=== PATIENT | female | born 1985 | race Caucasian/White ===

== ENCOUNTER 2018-07-20 16:46 | Emergency (ER) | payer MEDICAID ==
[~2018-07-20] VITALS: Ht 170.2 cm; Wt 119.0 kg
--- NOTE | 2018-07-20 18:27 | NUR ---
TO 32 WITH FAMILY
[2018-07-20 18:57] VITALS: BP 108/68
[2018-07-20] MEDS ORDERED: TOPI50TA8 PO (19:00)
[2018-07-20] MEDS ORDERED: SUMA50TA3 PO (19:00)
[2018-07-20] MEDS ORDERED: FERR324T9 PO (19:00)
[2018-07-20] MEDS ORDERED: KETOROLAC 30 MG/1 ML ONE (19:48)
[2018-07-20] MEDS ORDERED: METOCLOPRAMIDE 5 MG/ML, 2ML ONE (19:48)
[2018-07-20] MEDS ORDERED: DIPHENHYDRAMINE 50 MG/ML, 1ML ONE (19:48)
[2018-07-20] MEDS ORDERED: DIPHENHYDRAMINE 50 MG/ML, 1ML IM ONE (20:00)
[2018-07-20] MEDS ORDERED: KETOROLAC 60 MG/2 ML IM ONE (20:00)
[2018-07-20] MEDS ORDERED: METOCLOPRAMIDE 5 MG/ML, 2ML IM ONE (20:00)
== END 2018-07-20 20:10 | disposition home or self-care (01) ==
LOC: ED 20:08
DX: G43.909 Migraine, unspecified, not intractable, without status migrainosus (principal)
CPT/HCPCS: 96372; 99283; J1200; J1885; J2765

== ENCOUNTER 2018-08-15 09:58 | Emergency (ER) | payer MEDICAID ==
[~2018-08-15] VITALS: Ht 167.6 cm; Wt 119.0 kg
[~2018-08-15 09:58] MED LIST: FERR324T9 PO; SUMA50TA3 PO; TOPI50TA8 PO
[2018-08-15] MEDS ORDERED: SERT50TA28 PO (10:18)
[2018-08-15] MEDS ORDERED: PREG100C PO (10:18)
[2018-08-15] MEDS ORDERED: OMEP-110 PO (10:18)
[2018-08-15] MEDS ORDERED: FIORICET PO (10:18)
--- NOTE | 2018-08-15 10:29 | NUR ---
PT C/O PERSISTENT PRODUCTIVE COUGH OVER LAST 2 WEKS THAT WAS ACCOMPANIED BY VOMITING AFTER COUGHING SINCE LAST NOC. PT ALSO REPORTS BODY ACHES AND CHILLS. PT SEEN BY RESIDENT . WAITING FOR ORDERS.
[2018-08-15] MEDS ORDERED: ALBUTEROL/IPRATROPIUM 2.5MG/0.5MG, 3 ML NPPB ONE (11:30)
[2018-08-15] MEDS ORDERED: ALBUTEROL/IPRATROPIUM 2.5MG/0.5MG, 3 ML ONE (11:35)
[2018-08-15 11:46] LABS: BASOPHILS # (AUTO) 0.02 x10^3/uL (0-0.1); BASOPHILS % (AUTO) 0 % (0-1); EOSINOPHILS # (AUTO) 0.09 x10^3/uL (0-0.4); EOSINOPHILS % (AUTO) 1 % (1-7); LYMPHOCYTES # (AUTO) 1.37 x10^3/uL (1-3.4); LYMPHOCYTES % (AUTO) 17 % (22-44); MD NO; MEAN CORPUSCULAR HEMOGLOBIN 28.8 pg (27.0-34.8); MEAN CORPUSCULAR HGB CONC 33.3 g/dL (32.4-35.8); MEAN CORPUSCULAR VOLUME 86.8 fL (80-100); MEAN PLATELET VOLUME 7.6 fL (7.4-10.4); MONOCYTES # (AUTO) 0.41 x10^3/uL (0.2-0.8); MONOCYTES % (AUTO) 5 % (2-9); NEUTROPHILS # (AUTO) 6.33 x10^3/uL (1.8-6.8); NEUTROPHILS % (AUTO) 77 % (42-75); PLATELET COUNT 293 x10^3/uL (130-400); RED BLOOD COUNT 4.51 x10^6/uL (3.82-5.3); RED CELL DISTRIBUTION WIDTH 13.8 % (9.6-15.2)
[2018-08-15 11:52] LABS: ALBUMIN 3.6 g/dL (3.4-5.0); ANION GAP 5 mmol/L (5-15); CALCIUM 8.4 mg/dL (8.5-10.1); CHLORIDE 112 mmol/L (98-107); CREATININE 0.87 mg/dL (0.55-1.02)
--- NOTE | 2018-08-15 11:58 | NUR ---
CHART UP FOR MD RECHECK. PT AWARE.
[2018-08-15 12:29] VITALS: BP 120/75
== END 2018-08-15 12:31 | disposition home or self-care (01) ==
LOC: ED 11:21
DX: J98.01 Acute bronchospasm (principal); K21.9 Gastro-esophageal reflux disease without esophagitis
CPT/HCPCS: 36415; 71046; 73610; 80048; 82040; 85025; 93005; 94640; 99284; J7620

== ENCOUNTER 2018-10-20 10:34 | Emergency (ER) | payer MEDICAID ==
[~2018-10-20] VITALS: Ht 170.2 cm; Wt 113.0 kg
[~2018-10-20 10:34] MED LIST changes: +FIORICET PO; +OMEP-110 PO; +PREG100C PO; +SERT50TA28 PO
[2018-10-20 10:54] VITALS: BP 127/85
--- NOTE | 2018-10-20 11:16 | NUR ---
PT IN ROOM WITH FAMILY. PT IN GOWN AND ON NIBP AND O2 MONITORING. PT C/O CHEST CONGESTION, NASAL CONGESTION, AND HEADACHE THAT HAS BEEN UNRELIEVED BY TX AT HOME. RESPS EVEN AND UNLABORED, ROOM LIGHTING DIMMED AT PT REQUEST, CALL LIGHT IN REACH AND PT ENCOURAGED TO PRESS CALL LIGHT FOR ANY NEEDS OR CONCERNS.
== END 2018-10-20 12:06 | disposition home or self-care (01) ==
LOC: ED 11:59
DX: J01.10 Acute frontal sinusitis, unspecified (principal); J01.00 Acute maxillary sinusitis, unspecified; G43.019 Migraine without aura, intractable, without status migrainosus; K21.9 Gastro-esophageal reflux disease without esophagitis
CPT/HCPCS: 99283

== ENCOUNTER 2018-11-02 16:50 | Emergency (ER) | payer MEDICAID ==
[~2018-11-02] VITALS: Ht 167.6 cm; Wt 114.1 kg
[2018-11-02 16:55] VITALS: BP 117/79
--- NOTE | 2018-11-02 18:10 | NUR ---
Patient/Caregiver given discharge instructions and they have confirmed that they understand the instructions. Patient ambulatory with steady gait.
== END 2018-11-02 18:11 | disposition home or self-care (01) ==
LOC: ED 17:18
DX: J20.8 Acute bronchitis due to other specified organisms (principal); G43.909 Migraine, unspecified, not intractable, without status migrainosus; K21.9 Gastro-esophageal reflux disease without esophagitis
CPT/HCPCS: 71046; 99283

== ENCOUNTER 2019-06-12 13:41 | Emergency (ER) | payer MEDICAID ==
[~2019-06-12] VITALS: Ht 170.2 cm; Wt 109.5 kg
[2019-06-12 16:33] VITALS: BP 117/87
--- NOTE | 2019-06-12 21:45 | NUR ---
JOHNX1
--- NOTE | 2019-06-12 21:48 | NUR ---
NO ANSWER WHEN CALLED FOR ROOM
--- NOTE | 2019-06-12 21:56 | NUR ---
NILX3 LWBS
--- NOTE | 2019-06-12 21:56 | NUR ---
LEGAL COUNSEL: NIL X3. PT ASSUMED TO HAVE LEFT.
== END 2019-06-12 21:58 | disposition left against medical advice (07) ==
LOC: ED 21:52
DX: G43.909 Migraine, unspecified, not intractable, without status migrainosus (principal)
CPT/HCPCS: 99281

== ENCOUNTER 2019-07-28 10:57 | Emergency (ER) | payer MEDICAID ==
[~2019-07-28] VITALS: Ht 170.2 cm; Wt 107.3 kg
--- NOTE | 2019-07-28 11:58 | NUR ---
PT AMBULATED STEADILY TO ROOM FROM LOBBY, CHANGED INTO GOWN, RESPONDS APPROP TO STAFF, COMFORT MEASURES PROVIDED, CALL LIGHT WITHIN REACH.
[2019-07-28 12:00] VITALS: BP 132/76
[2019-07-28] MEDS ORDERED: MAALOX/HYOSCYAMINE/LIDOCAINE 45 ML BTL ONE (12:21)
[2019-07-28] MEDS ORDERED: KETOROLAC 60 MG/2 ML ONE (12:21)
[2019-07-28] MEDS ORDERED: ONDANSETRON ODT 4 MG ONE (12:21)
[2019-07-28] MEDS ORDERED: KETOROLAC 30 MG/1 ML IM ONE (12:30)
[2019-07-28] MEDS ORDERED: MAALOX/HYOSCYAMINE/LIDOCAINE 45 ML BTL PO ONE (12:30)
[2019-07-28] MEDS ORDERED: ONDANSETRON ODT 8 MG PO ONE (12:30)
--- NOTE | 2019-07-28 13:19 | NUR ---
Patient/Caregiver given discharge instructions and they have confirmed that they understand the instructions. Patient ambulatory with steady gait.
--- NOTE | 2019-07-28 13:19 | NUR ---
REPORT FROM ARISTIDES
== END 2019-07-28 13:27 | disposition home or self-care (01) ==
LOC: ED 13:16
DX: G44.209 Tension-type headache, unspecified, not intractable (principal); R11.2 Nausea with vomiting, unspecified; R05 Cough; K21.9 Gastro-esophageal reflux disease without esophagitis
CPT/HCPCS: 93005; 96372; 99283; J1885; Q0162; 99284

== ENCOUNTER 2019-09-12 12:27 | Emergency (ER) | payer SELFPAY ==
[~2019-09-12] VITALS: Ht 170.2 cm; Wt 108.6 kg
--- NOTE | 2019-09-12 13:00 | NUR ---
Shin mcmahon in [facility] - 09/12/19 at 1302 by DAYANA PT TO ROOM FROM [facility] AT THIS TIME.
--- NOTE | 2019-09-12 13:05 | NUR ---
PT TO ROOM FROM LOBBY AT THIS TIME.
--- NOTE | 2019-09-12 13:10 | NUR ---
ASSUMED CARE OF PT AT THIS TIME FROM LOBBY. AMBULATORY TO ROOM WITH STEADY GAIT. 33 Y/O F REPORTS ""I HAVE HIVES EVERYWHERE EXCEPT ON MY FEET AND MY FACE. IT CLARK AND ITCHES SO TERRIBLY, I CAN'T STAND IT, NO RELIEF FROM BENADRYL, I THINK IT COULD BE MY MEDICATIONS, NOTHING IS NEW, I DON'T KNOW." DENIES CP, SOB, COUGH, FEVER, CHILLS, DYSNPNEA, DIFFICULTY SWALLOWING. AIRWAY PATENT, ABLE TO CLEAR OWN SECRETIONS WITHOUT DIFFICULTY. CONT PULSE OX, BP MONITOTS APPLIED. VSS. CALL LIGHT IN REACH. FALL PRECAUTIONS IN PLACE. SIDE RAILS UPX2. AWAITING EVAL BY ERP.
[2019-09-12 13:30] VITALS: BP 121/83
--- NOTE | 2019-09-12 13:33 | NUR ---
DR. LAZARO AT BEDSIDE FOR EVALUATION
--- NOTE | 2019-09-12 13:44 | NUR ---
REPORT AND CARE TO BREAK RN TITI AT THIS TIME.
--- NOTE | 2019-09-12 13:55 | NUR ---
TASK RN: Patient/Caregiver given discharge instructions and they have confirmed that they understand the instructions. Patient ambulatory with steady gait.
== END 2019-09-12 13:55 | disposition home or self-care (01) ==
LOC: ED 13:19
DX: L27.0 Generalized skin eruption due to drugs and medicaments taken internally (principal); T47.1X5A Adverse effect of other antacids and anti-gastric-secretion drugs, initial encounter; G43.909 Migraine, unspecified, not intractable, without status migrainosus; K21.9 Gastro-esophageal reflux disease without esophagitis; Y92.89 Other specified places as the place of occurrence of the external cause
CPT/HCPCS: 99283

== ENCOUNTER 2020-01-06 09:56 | Emergency (ER) | payer MEDICAID ==
[~2020-01-06] VITALS: Ht 170.2 cm; Wt 110.0 kg
[2020-01-06] MEDS ORDERED: KETOROLAC 30 MG/1 ML IM ONE (10:30)
[2020-01-06] MEDS ORDERED: DIAZEPAM 5 MG TABLET PO ONE (10:30)
[2020-01-06] MEDS ORDERED: KETOROLAC 60 MG/2 ML ONE (11:04)
[2020-01-06] MEDS ORDERED: DIAZEPAM 5 MG TABLET ONE (11:04)
--- NOTE | 2020-01-06 13:27 | NUR ---
PT AMBULATED TO THE RESTROOM FOR URINE. PT WAS SLEEPING, JUST WOKR UP TO SAY THAT HER MEDS DID NOT HELP HE PAIN.
[2020-01-06 13:50] LABS: MICROSCOPIC AUTO
[2020-01-06 13:51] VITALS: BP 117/64
--- NOTE | 2020-01-06 13:52 | NUR ---
TASK RN: PT RESTING ON [employer]. C/O LBP 12/28. VSS.
[2020-01-06] MEDS ORDERED: OXYcodone/APAP 5/325MG TABLET ONE (13:58)
[2020-01-06] MEDS ORDERED: OXYcodone/APAP 5/325MG TABLET PO ONE (14:00)
== END 2020-01-06 15:06 | disposition home or self-care (01) ==
LOC: ED 10:50
DX: N39.0 Urinary tract infection, site not specified (principal); M54.5 Low back pain; K21.9 Gastro-esophageal reflux disease without esophagitis
CPT/HCPCS: 72110; 81001; 87086; 96372; 99284; J1885

== ENCOUNTER 2020-02-06 20:29 | Emergency (ER) | payer MEDICAID ==
[~2020-02-06] VITALS: Ht 170.2 cm; Wt 110.0 kg
[2020-02-06] MEDS ORDERED: MORPHINE SULFATE 4 MG/ML, 1ML ONE (20:59)
[2020-02-06] MEDS ORDERED: KETOROLAC 30 MG/1 ML ONE (20:59)
[2020-02-06] MEDS ORDERED: ONDANSETRON 2MG/ML, 2ML ONE (20:59)
[2020-02-06] MEDS ORDERED: SODIUM CHLORIDE FLUSH 10ML SYR IVF ONE (21:00)
[2020-02-06] MEDS ORDERED: ONDANSETRON 2MG/ML, 2ML IVPush ONE (21:00)
[2020-02-06] MEDS ORDERED: MORPHINE SULFATE 4 MG/ML, 1ML IVPush PRN (21:00)
[2020-02-06] MEDS ORDERED: KETOROLAC 30 MG/1 ML IVPush ONE (21:00)
[2020-02-06] MEDS ORDERED: SODIUM CHLORIDE 0.9% 1,000ML IVBOLUS ONE (21:00)
[2020-02-06 21:26] LABS: ALBUMIN 3.4 g/dL (3.4-5.0); ANION GAP 6 mmol/L (5-15); CALCIUM 8.2 mg/dL (8.5-10.1); CHLORIDE 113 mmol/L (98-107); CREATININE 0.94 mg/dL (0.55-1.02)
[2020-02-06 21:29] LABS: BASOPHILS # (AUTO) 0.07 x10^3/uL (0-0.1); BASOPHILS % (AUTO) 1 % (0-1); EOSINOPHILS # (AUTO) 0.07 x10^3/uL (0-0.4); EOSINOPHILS % (AUTO) 1 % (1-7); LYMPHOCYTES # (AUTO) 1.94 x10^3/uL (1-3.4); LYMPHOCYTES % (AUTO) 15 % (22-44); MD NO; MEAN CORPUSCULAR HEMOGLOBIN 29.7 pg (27.0-34.8); MEAN CORPUSCULAR HGB CONC 32.6 g/dL (32.4-35.8); MEAN CORPUSCULAR VOLUME 91.1 fL (80-100); MEAN PLATELET VOLUME 7.2 fL (7.4-10.4); MONOCYTES % (AUTO) 5 % (2-9); NEUTROPHILS % (AUTO) 80 % (42-75); PLATELET COUNT 250 x10^3/uL (130-400); RED CELL DISTRIBUTION WIDTH 13.7 % (9.6-15.2)
[2020-02-06 21:46] LABS: MICROSCOPIC INDICATED
--- NOTE | 2020-02-06 22:55 | NUR ---
ALL RESULTS ARE BACK AT THIS TIME. CHART UP FOR RECHECK.
--- NOTE | 2020-02-06 22:59 | NUR ---
PT STATES PAIN IS BETTER AFTER PAIN MEDS.
--- NOTE | 2020-02-06 23:12 | NUR ---
BEDSIDE REPORT FROM HILARY CAUSEY, PT CARE TRANSFERRED AT THIS TIME. RESTING ON GURNEY, NAD, APPEARS COMFORTABLE, PT UP FOR RECHECK, ENDY.
[2020-02-06 23:54] VITALS: BP 117/64
--- NOTE | 2020-02-07 00:03 | NUR ---
Patient given discharge instructions and they have confirmed that they understand the instructions. Patient ambulatory with steady gait. All questions answered appropriately, denies additional needs at this time. NAD, no belongings left in room after DC.
== END 2020-02-07 00:14 | disposition home or self-care (01) ==
LOC: ED 20:59
DX: N13.2 Hydronephrosis with renal and ureteral calculous obstruction (principal); R10.31 Right lower quadrant pain; R11.2 Nausea with vomiting, unspecified; R19.7 Diarrhea, unspecified; K21.9 Gastro-esophageal reflux disease without esophagitis; G43.909 Migraine, unspecified, not intractable, without status migrainosus
CPT/HCPCS: 36415; 74176; 80048; 81001; 82040; 84703; 85025; 87086; 96361; 96374; 96375; 99284; J1885; J2270; J2405; J7030

== ENCOUNTER 2020-05-05 12:25 | Day surgery (SDC) | payer MEDICAID ==
[~2020-05-05] VITALS: Ht 170.2 cm; Wt 113.0 kg
[2020-05-05 12:52] VITALS: BP 127/79
[2020-05-05] MEDS ORDERED: LACTATED RINGERS 1,000 ML IV SCH (13:00)
[2020-05-05] MEDS ORDERED: CHLORHEXIDINE 15 ML UDC MM ONE (13:00)
[2020-05-05 13:46] LABS: HCG UR SG 1.024 (1.003-1.030); MICROSCOPIC AUTO
[2020-05-05] MEDS ORDERED: FENTANYL PF 250 MCG/5ML ONE (14:29)
[2020-05-05] MEDS ORDERED: MIDAZOLAM 1 MG/ML, 2ML ONE (14:30)
[2020-05-05] MEDS ORDERED: DEXAMETHASONE 4 MG/ML, 1ML ONE (14:41)
[2020-05-05] MEDS ORDERED: ONDANSETRON 2MG/ML, 2ML ONE (14:41)
[2020-05-05] MEDS ORDERED: CEFAZOLIN 1,000 MG ONE (14:41)
[2020-05-05] MEDS ORDERED: PROPOFOL 50 ML ONE (14:56)
[2020-05-05] MEDS ORDERED: OMNIPAQUE 350 MG/ML, 50 ML BOTTLE INJ ONE (15:02)
[2020-05-05] MEDS ORDERED: PHENAZOPYRIDINE 200 MG TABLET ONE (15:21)
[2020-05-05] MEDS ORDERED: KETOROLAC 30 MG/1 ML ONE (15:21)
[2020-05-05] MEDS ORDERED: LABETALOL 5MG/ML, 20ML IV PRN (15:30)
[2020-05-05] MEDS ORDERED: ACETAMINOPHEN 325 MG TABLET PO PRN (15:30)
[2020-05-05] MEDS ORDERED: KETOROLAC 30 MG/1 ML IVPush PRN (15:30)
[2020-05-05] MEDS ORDERED: METHOCARBAMOL 1,000 MG in DEXTROSE 5% 100 ML IV PRN (15:30)
[2020-05-05] MEDS ORDERED: HYDROmorphone 1 MG/ML, 1ML INJ IVPush PRN (15:30)
[2020-05-05] MEDS ORDERED: PHENAZOPYRIDINE 200 MG TABLET PO ONE (15:30)
[2020-05-05] MEDS ORDERED: MEPERIDINE/PF 25MG/0.5ML IVPush PRN (15:30)
[2020-05-05] MEDS ORDERED: hydrALAzine 20 MG/ML, 1ML IV PRN (15:30)
[2020-05-05] MEDS ORDERED: EPHEDRINE 50 MG/ML, 1ML IVPush PRN (15:30)
[2020-05-05] MEDS ORDERED: PROMETHAZINE 25 MG/ML, 1ML IVPush PRN (15:30)
[2020-05-05] MEDS ORDERED: ONDANSETRON 2MG/ML, 2ML IVPush PRN (15:30)
[2020-05-05] MEDS ORDERED: LORazepam 2 MG/ML, 1ML IVPush PRN (15:30)
[2020-05-05] MEDS ORDERED: FENTANYL PF 100 MCG/2ML ONE (15:30)
[2020-05-05] MEDS: FENTANYL PF 100 MCG/2ML IV PRN ×2 (15:32→15:54)
[2020-05-05] MEDS ORDERED: OXYcodone 5 MG/5 ML ORAL.SOL UDC ONE (15:59)
[2020-05-05] MEDS: OXYcodone 5 MG/5 ML ORAL.SOL UDC PO PRN ×2 (16:00→16:28)
== END 2020-05-05 17:50 | disposition home or self-care (01) ==
LOC: OUT 12:25
PROVIDERS: ATTEND Urology
DX: R10.31 Right lower quadrant pain (principal); Z20.828 Contact with and (suspected) exposure to other viral communicable diseases
CPT/HCPCS: 52351; 81001; 81025; 87086; 87635; C1726; J0690; J1100; J1170; J1885; J2250; J2405; J2704; J3010; J7120; Q9967; 76000

== ENCOUNTER 2020-06-29 20:31 | Emergency (ER) | payer MEDICAID ==
[~2020-06-29] VITALS: Ht 170.2 cm; Wt 116.5 kg
[2020-06-29] MEDS ORDERED: HYDROmorphone 1 MG/ML, 1ML INJ IM ONE (22:00)
[2020-06-29] MEDS ORDERED: METHOCARBAMOL 750 MG TABLET PO ONE (22:00)
[2020-06-29] MEDS ORDERED: METHOCARBAMOL 750 MG TABLET ONE (22:21)
[2020-06-29] MEDS ORDERED: HYDROmorphone 1 MG/ML, 1ML INJ ONE (22:21)
[2020-06-29 22:24] LABS: BASOPHILS % (AUTO) 1 % (0-1); EOSINOPHILS % (AUTO) 3 % (1-7); LYMPHOCYTES % (AUTO) 32 % (22-44); MEAN CORPUSCULAR HEMOGLOBIN 30.1 pg (27.0-34.8); MEAN PLATELET VOLUME 6.9 fL (7.4-10.4); MONOCYTES % (AUTO) 9 % (2-9); NEUTROPHILS % (AUTO) 54 % (42-75); PLATELET COUNT 280 x10^3/uL (130-400); RED BLOOD COUNT 4.65 x10^6/uL (3.82-5.3); RED CELL DISTRIBUTION WIDTH 12.8 % (9.6-15.2)
[2020-06-29 22:28] LABS: MD NO
[2020-06-29 22:31] LABS: ALBUMIN 3.2 g/dL (3.4-5.0); ANION GAP 5 mmol/L (5-15); CALCIUM 8.3 mg/dL (8.5-10.1); CHLORIDE 113 mmol/L (98-107)
[2020-06-29 22:37] LABS: ALANINE AMINOTRANSFERASE 24 U/L (12-78); ALKALINE PHOSPHATASE 75 U/L (45-117); BILIRUBIN,TOTAL 0.2 mg/dL (0.2-1.0); CREATININE 1.07 mg/dL (0.55-1.02); TOTAL PROTEIN 6.3 g/dL (6.4-8.2)
[2020-06-29 22:49] LABS: MICROSCOPIC NOT IND
[2020-06-29 23:19] VITALS: BP 115/77
--- NOTE | 2020-06-29 23:20 | NUR ---
Pt states feeling better after medications. Pt dc'd with written and verbal instructions. Pt states she understands. Pt instructed to f/u with PCP. Pt instructed not to drive, and has a ride home. Pt ambulatory out of ED without difficulty.
== END 2020-06-29 23:23 | disposition home or self-care (01) ==
LOC: ED 22:44
DX: G62.9 Polyneuropathy, unspecified (principal); M54.5 Low back pain; K21.9 Gastro-esophageal reflux disease without esophagitis; G43.909 Migraine, unspecified, not intractable, without status migrainosus
CPT/HCPCS: 36415; 80053; 81003; 84703; 85025; 96372; 99283; J1170

== ENCOUNTER 2020-12-04 14:41 | Emergency (ER) | payer MEDICAID ==
[~2020-12-04] VITALS: Ht 170.2 cm; Wt 122.7 kg
[2020-12-04 14:47] VITALS: BP 115/65
== END 2020-12-04 15:31 | disposition home or self-care (01) ==
LOC: ED 15:25
DX: B34.9 Viral infection, unspecified (principal); K21.9 Gastro-esophageal reflux disease without esophagitis; G43.909 Migraine, unspecified, not intractable, without status migrainosus
CPT/HCPCS: 99281